=== PATIENT | female | born 1950 | race Two or more races ===

== ENCOUNTER → 2021-10-25 | Day surgery (SDC) | payer OTHER ==
[~2021-10-25] VITALS: Ht 160 cm; Wt 54.4 kg
[~2021-10-25] MED LIST: AML5T PO; AMOX500T3 PO; BENA20TA14 PO; BUPIVACAINE W/ EPINEPH 0.25% INJ 50ML MDV ONE; DULO60CA PO; FAMO-68 PO; HYDR2TAB58 PO; HYDROmorphone HCL 2 MG/ML VL IV PRN; KEP500T PO; MEPERIDINE HCL (25 MG/ML) 1ML VIAL ONE; METH5TAB2 PO; METO-289 PO; METOCLOPRAMIDE HCL 5MG/ml INJ 2ml VIAL IV PRN; MIDAZOLAM HCL 2MG/2ML 2ml VIAL (1mg/ml) ONE; MORPHINE SULFATE INJECTION 2 MG/ML SYRG IV PRN; ONDANSETRON HCL 4 MG/2 ML VIAL ONE; PEN400T PO; PROPOFOL 10 MG/ML 20 ML IV ONE; ROCURONIUM 10MG/ML 10ML VIAL IV ONE; SUCCINYLCHOLINE CHLORIDE 20 MG/ML 10ML VIAL IV ONE; VITA400T4 PO; ceFAZolin 1GM/50ML 100 ML IV ONE; fentaNYL CITRATE 100 MCG/2 ML VL ONE
[2021-10-25 09:10] VITALS: BP 135/81
== END | disposition home or self-care (01) ==
LOC: SUR 06:16
PROVIDERS: ATTEND Orthopaedic Surgery Adult Reconstructive Orthopaedic Surgery
DX: S52.571A Other intraarticular fracture of lower end of right radius, initial encounter for closed fracture (principal); I10 Essential (primary) hypertension; J44.9 Chronic obstructive pulmonary disease, unspecified; K21.9 Gastro-esophageal reflux disease without esophagitis; F32.9 Major depressive disorder, single episode, unspecified; G40.909 Epilepsy, unspecified, not intractable, without status epilepticus; Z85.850 Personal history of malignant neoplasm of thyroid; Z20.822 Contact with and (suspected) exposure to COVID-19; Z87.891 Personal history of nicotine dependence; Z86.2 Personal history of diseases of the blood and blood-forming organs and certain disorders involving the immune mechanism; Z98.890 Other specified postprocedural states; Z79.899 Other long term (current) drug therapy; X58.XXXA Exposure to other specified factors, initial encounter; Y92.89 Other specified places as the place of occurrence of the external cause; Y93.89 Activity, other specified; Y99.8 Other external cause status
CPT/HCPCS: 25609; 36415; 73110; 76000; C1713; C1769; J0330; J0690; J2175; J2250; J2405; J2704; J2765; J3010; U0003

== ENCOUNTER 2022-11-04 17:51 | Inpatient (IN) | payer OTHER ==
[~2022-11-04] VITALS: Ht 160 cm; Wt 63.9 kg
[~2022-11-04 17:51] MED LIST changes: -BUPIVACAINE W/ EPINEPH 0.25% INJ 50ML MDV ONE; -HYDROmorphone HCL 2 MG/ML VL IV PRN; -MEPERIDINE HCL (25 MG/ML) 1ML VIAL ONE; -METOCLOPRAMIDE HCL 5MG/ml INJ 2ml VIAL IV PRN; -MIDAZOLAM HCL 2MG/2ML 2ml VIAL (1mg/ml) ONE; -MORPHINE SULFATE INJECTION 2 MG/ML SYRG IV PRN; -ONDANSETRON HCL 4 MG/2 ML VIAL ONE; -PROPOFOL 10 MG/ML 20 ML IV ONE; -ROCURONIUM 10MG/ML 10ML VIAL IV ONE; -SUCCINYLCHOLINE CHLORIDE 20 MG/ML 10ML VIAL IV ONE; -ceFAZolin 1GM/50ML 100 ML IV ONE; -fentaNYL CITRATE 100 MCG/2 ML VL ONE
[2022-11-05] VITALS (7 sets, daily range): BP systolic 126–143; BP diastolic 78–91
[2022-11-05] MEDS ORDERED: ACETAMINOPHEN 650 mg PER 20.3 mL UD GT PRN
[2022-11-05] MEDS ORDERED: hydrALAZINE HCL 20 MG/ML VL IV PRN
[2022-11-05] MEDS ORDERED: DEXTROSE (50%) 50ML SYRG IV PRN (00:45)
[2022-11-05] MEDS: OXYCODONE W/ ACETAMINOPHEN 5/325MG TABLET PO PRN ×4 (01:17→20:35)
[2022-11-05] MEDS: ALBUTEROL SULF 2.5 MG/0.5ML(0.5%) NEB SOLN NEB SCH ×4 (02:40→18:53)
[2022-11-05] MEDS: IPRATROPIUM BROM 0.5 MG/2.5ML INH SOL NEB SCH ×4 (02:40→18:52)
[2022-11-05] MEDS ORDERED: ALBUTEROL MEDNEB 2.5 mg/3ml NEB ONE ×3 (06:02→18:02)
[2022-11-05] MEDS: InsuLIN REG 1unit/0.01ml Soln (100units/ml) SC SCH ×4 (06:56→21:51)
[2022-11-05] MEDS: ACCU-CHEK COMFORT CURVE STRIP VI SCH ×4 (06:57→21:51)
[2022-11-05] MEDS ORDERED: AMIODARONE 450mg/250ml AE 250 ML IV SCH (07:00)
[2022-11-05 08:49] LABS: Basophils # (auto) 0 10 ^3/uL (0-0.2); Eosinophils # (auto) 0 10 ^3/uL (0-0.8); Neutrophils # (auto) 7.5 10 ^3/uL (1.6-8.6)
[2022-11-05 08:51] LABS: Basophils % (auto) 0.4 % (0.0-2.0); Eosinophils % (auto) 0.2 % (0.0-7.0); Hematocrit 22.3 % (36.0-46.0); Hemoglobin 7.4 g/dL (12.2-16.2); Lymphocytes # (auto) 0.6 10 ^3/uL (0.4-5.4); Mean Corpuscular Hemoglobin 30.6 pg (28.0-32.0); Mean Corpuscular Hgb Conc. 33.2 g/dL (32.0-36.0); Monocytes # (auto) 1.2 10 ^3/uL (0-1.3); Monocytes % (auto) 12.8 % (0.0-12.0); Neutrophils % (auto) 80.6 % (37.0-80.0); Nucleated Red Blood Cells % 0.1 %; Red Blood Cells 2.43 10^6/uL (4.0-5.20); White Blood Cell 9.3 10^3/uL (4.4-10.8)
[2022-11-05 09:01] LABS: Red Cell Distribution Width 22.2 % (11.8-14.3)
[2022-11-05 09:21] LABS: BUN/Creatinine Ratio 31.3; Calcium 7.8 mg/dL (8.5-10.1); Potassium 3.9 mmol/L (3.5-5.1)
[2022-11-05] MEDS: APIXABAN 5 MG TAB PO SCH ×2 (09:26→21:50)
[2022-11-05] MEDS: levETIRAcetam 500 MG TAB PO SCH ×2 (09:28→21:51)
[2022-11-05] MEDS: METOPROLOL SUCCINATE XL 50 MG TAB PO SCH (09:28)
[2022-11-05] MEDS: PANTOPRAZOLE 40 MG/10 ML VIAL INJ IV SCH (09:29)
[2022-11-05] MEDS: levoFLOXacin 500MG 100 ML IV SCH (09:29)
[2022-11-05] MEDS ORDERED: GASTROGRAFIN 30 ML SOL ONE (11:49)
[2022-11-05 13:25] LABS: Basophils # (auto) 0.1 10 ^3/uL (0-0.2); Eosinophils # (auto) 0 10 ^3/uL (0-0.8); Eosinophils % (auto) 0.3 % (0.0-7.0)
[2022-11-05 13:27] LABS: Basophils % (auto) 0.8 % (0.0-2.0); Hematocrit 23.1 % (36.0-46.0); Hemoglobin 7.7 g/dL (12.2-16.2); Lymphocytes # (auto) 0.5 10 ^3/uL (0.4-5.4); Lymphocytes % (auto) 5.2 % (10.0-50.0); Mean Corpuscular Hemoglobin 30.6 pg (28.0-32.0); Mean Corpuscular Hgb Conc. 33.3 g/dL (32.0-36.0); Mean Corpuscular Volume 91.8 fL (80.0-100.0); Monocytes % (auto) 11.6 % (0.0-12.0); Neutrophils # (auto) 7.2 10 ^3/uL (1.6-8.6); Neutrophils % (auto) 82.1 % (37.0-80.0); Nucleated Red Blood Cells % 0.1 %; Red Blood Cells 2.51 10^6/uL (4.0-5.20); White Blood Cell 8.7 10^3/uL (4.4-10.8)
[2022-11-05 13:31] LABS: Red Cell Distribution Width 22.6 % (11.8-14.3)
[2022-11-05] MEDS ORDERED: POLYETHYLENE GLYCOL 17 GM PWDR PO ONE (15:45)
[2022-11-05 16:08] LABS: % Iron Saturation 16.2 % (15-50)
[2022-11-05] MEDS: ATORVASTATIN 20 MG TAB PO SCH (21:50)
[2022-11-05] MEDS: MORPHINE SULFATE INJ 2 MG/ml SYRG IV PRN (23:40)
[2022-11-06] MEDS: IPRATROPIUM BROM 0.5 MG/2.5ML INH SOL NEB SCH ×4 (00:04→18:33)
[2022-11-06] MEDS: ALBUTEROL SULF 2.5 MG/0.5ML(0.5%) NEB SOLN NEB SCH ×4 (00:04→18:33)
[2022-11-06] MEDS: OXYCODONE W/ ACETAMINOPHEN 5/325MG TABLET PO PRN ×4 (02:32→21:52)
[2022-11-06 05:00] VITALS: BP 147/90
[2022-11-06 05:34] LABS: Basophils # (auto) 0.1 10 ^3/uL (0-0.2); Eosinophils # (auto) 0.1 10 ^3/uL (0-0.8); Lymphocytes # (auto) 0.4 10 ^3/uL (0.4-5.4); Nucleated Red Blood Cells % 0.1 %
[2022-11-06 05:36] LABS: Eosinophils % (auto) 0.7 % (0.0-7.0); Hematocrit 23.4 % (36.0-46.0); Hemoglobin 7.6 g/dL (12.2-16.2); Lymphocytes % (auto) 5.1 % (10.0-50.0); Mean Corpuscular Hemoglobin 29.5 pg (28.0-32.0); Mean Corpuscular Hgb Conc. 32.4 g/dL (32.0-36.0); Mean Corpuscular Volume 91.2 fL (80.0-100.0); Monocytes # (auto) 1.1 10 ^3/uL (0-1.3); Neutrophils # (auto) 6.6 10 ^3/uL (1.6-8.6); Neutrophils % (auto) 80.2 % (37.0-80.0); Red Blood Cells 2.56 10^6/uL (4.0-5.20); White Blood Cell 8.2 10^3/uL (4.4-10.8)
[2022-11-06 05:40] LABS: Red Cell Distribution Width 22.8 % (11.8-14.3)
[2022-11-06 05:47] LABS: BUN/Creatinine Ratio 68.8; Calcium 7.9 mg/dL (8.5-10.1); Potassium 3.6 mmol/L (3.5-5.1)
[2022-11-06] MEDS ORDERED: ALBUTEROL MEDNEB 2.5 mg/3ml NEB ONE ×3 (06:00→17:59)
[2022-11-06] MEDS: InsuLIN REG 1unit/0.01ml Soln (100units/ml) SC SCH ×4 (07:00→21:52)
[2022-11-06] MEDS: ACCU-CHEK COMFORT CURVE STRIP VI SCH ×4 (07:00→21:52)
[2022-11-06 08:00] VITALS: BP 147/88
[2022-11-06] MEDS: levoFLOXacin 500MG 100 ML IV SCH (08:52)
[2022-11-06] MEDS: METOPROLOL SUCCINATE XL 50 MG TAB PO SCH (08:54)
[2022-11-06] MEDS: PANTOPRAZOLE 40 MG/10 ML VIAL INJ IV SCH (08:55)
[2022-11-06] MEDS: levETIRAcetam 500 MG TAB PO SCH ×2 (08:55→21:52)
[2022-11-06] MEDS: APIXABAN 5 MG TAB PO SCH ×2 (08:55→21:52)
[2022-11-06] MEDS: MORPHINE SULFATE INJ 2 MG/ml SYRG IV PRN ×2 (10:27→17:49)
[2022-11-06 12:00] VITALS: BP 141/81
[2022-11-06 16:00] VITALS: BP 146/84
[2022-11-06] MEDS: ATORVASTATIN 20 MG TAB PO SCH (21:52)
[2022-11-06] MEDS: FERROUS SULFATE 300 MG/5 ML ORAL LIQ PO SCH (21:52)
[2022-11-06 22:00] VITALS: BP 146/87
[2022-11-07] MEDS ORDERED: ALBUTEROL MEDNEB 2.5 mg/3ml NEB ONE ×4 (00:03→17:53)
[2022-11-07] MEDS: MORPHINE SULFATE INJ 2 MG/ml SYRG IV PRN ×3 (01:18→14:37)
[2022-11-07] MEDS: OXYCODONE W/ ACETAMINOPHEN 5/325MG TABLET PO PRN ×3 (04:03→16:31)
[2022-11-07 05:00] VITALS: BP 154/98
[2022-11-07] MEDS: ACCU-CHEK COMFORT CURVE STRIP VI SCH ×3 (06:05→17:00)
[2022-11-07] MEDS: InsuLIN REG 1unit/0.01ml Soln (100units/ml) SC SCH ×3 (06:05→17:00)
[2022-11-07] MEDS: ALBUTEROL SULF 2.5 MG/0.5ML(0.5%) NEB SOLN NEB SCH ×5 (06:51→18:00)
[2022-11-07] MEDS: IPRATROPIUM BROM 0.5 MG/2.5ML INH SOL NEB SCH ×5 (06:51→18:00)
[2022-11-07] MEDS ORDERED: Glucerna 1.2 Cal 1Liter BOTTLE GT SCH (07:30)
[2022-11-07 08:47] VITALS: BP 171/90
[2022-11-07] MEDS: FERROUS SULFATE 300 MG/5 ML ORAL LIQ PO SCH (08:48)
[2022-11-07] MEDS: PANTOPRAZOLE 40 MG/10 ML VIAL INJ IV SCH (08:48)
[2022-11-07] MEDS: levETIRAcetam 500 MG TAB PO SCH (08:48)
[2022-11-07] MEDS: APIXABAN 5 MG TAB PO SCH (08:48)
[2022-11-07] MEDS: levoFLOXacin 500MG 100 ML IV SCH (08:48)
[2022-11-07] MEDS: METOPROLOL SUCCINATE XL 50 MG TAB PO SCH (08:49)
[2022-11-07] MEDS ORDERED: NITROGLYCERIN 0.4 MG SL TAB SL PRN (09:00)
[2022-11-07] MEDS ORDERED: MORPHINE SULFATE INJ 2 MG/ml SYRG IV PRN (09:00)
[2022-11-07 09:56] LABS: Basophils # (auto) 0.1 10 ^3/uL (0-0.2); Eosinophils # (auto) 0.3 10 ^3/uL (0-0.8); Lymphocytes # (auto) 0.3 10 ^3/uL (0.4-5.4); Monocytes # (auto) 0.6 10 ^3/uL (0-1.3)
[2022-11-07 09:59] LABS: Eosinophils % (auto) 3.5 % (0.0-7.0); Hemoglobin 9.5 g/dL (12.2-16.2); Lymphocytes % (auto) 2.9 % (10.0-50.0); Mean Corpuscular Hemoglobin 30.4 pg (28.0-32.0); Mean Corpuscular Hgb Conc. 32.6 g/dL (32.0-36.0); Mean Corpuscular Volume 93.1 fL (80.0-100.0); Neutrophils % (auto) 85.6 % (37.0-80.0); Red Blood Cells 3.12 10^6/uL (4.0-5.20); White Blood Cell 9.3 10^3/uL (4.4-10.8)
[2022-11-07 10:58] LABS: Red Cell Distribution Width 23.9 % (11.8-14.3)
[2022-11-07 11:22] LABS: Potassium 3.5 mmol/L (3.5-5.1)
[2022-11-07 11:33] LABS: Folate (Folic Acid) 18.12 ng/mL (5.38-24)
[2022-11-07 11:38] LABS: Calcium 8.5 mg/dL (8.5-10.1)
[2022-11-07 13:10] VITALS: BP 145/70
[2022-11-07 15:14] VITALS: BP 145/70
== END 2022-11-07 18:10 | DRG 193 ==
LOC: TELE-EAST 22:40
PROVIDERS: ADMIT Hospitalist; ATTEND Hospitalist
DX: J18.9 Pneumonia, unspecified organism (principal); I46.9 Cardiac arrest, cause unspecified; J96.21 Acute and chronic respiratory failure with hypoxia; J96.22 Acute and chronic respiratory failure with hypercapnia; I13.0 Hypertensive heart and chronic kidney disease with heart failure and stage 1 through stage 4 chronic kidney disease, or unspecified chronic kidney disease; J44.0 Chronic obstructive pulmonary disease with (acute) lower respiratory infection; J98.11 Atelectasis; I31.39 Other pericardial effusion (noninflammatory); Z20.822 Contact with and (suspected) exposure to COVID-19; D64.9 Anemia, unspecified; E11.22 Type 2 diabetes mellitus with diabetic chronic kidney disease; G40.909 Epilepsy, unspecified, not intractable, without status epilepticus; I25.10 Atherosclerotic heart disease of native coronary artery without angina pectoris; I48.91 Unspecified atrial fibrillation; I50.9 Heart failure, unspecified; T45.1X5A Adverse effect of antineoplastic and immunosuppressive drugs, initial encounter; M81.0 Age-related osteoporosis without current pathological fracture; C14.0 Malignant neoplasm of pharynx, unspecified; F17.200 Nicotine dependence, unspecified, uncomplicated; N18.9 Chronic kidney disease, unspecified; Z93.1 Gastrostomy status; Z86.711 Personal history of pulmonary embolism; Z83.3 Family history of diabetes mellitus; Z82.49 Family history of ischemic heart disease and other diseases of the circulatory system; Z79.899 Other long term (current) drug therapy; Z79.02 Long term (current) use of antithrombotics/antiplatelets; Z79.01 Long term (current) use of anticoagulants
CPT/HCPCS: 36415; 71045; 74018; 80048; 82270; 82607; 82746; 82962; 83036; 83540; 83550; 83880; 84484; 85025; 87426; 93306; 94640; 97110; 97116; 97163; C9113; G0378; J1956